=== PATIENT | male | born 1995 | race Caucasian/White ===

== ENCOUNTER 2016-12-15 17:01 | Emergency (ER) | payer BC, OTHER ==
[~2016-12-15] VITALS: Ht 167.6 cm; Wt 60.0 kg
[2016-12-15 17:13] VITALS: Ht 167.6 cm; Wt 60.0 kg
--- NOTE | 2016-12-15 17:55 | ERA ---
ER Documentation Chief Complaint Date/Time DATE: 12/15/16 TIME: 17:55 Chief Complaint nausea and vomiting with diarrhea this morning HPI The patient is a 21-year-old male, presenting with vomiting and diarrhea today after having pancake yesterday. He denies hematemesis, hematochezia, fever, chills, neck pain, chest pain, abdominal pain, dysuria. He does not smoke nor drink Past medical/surgical history: None ROS All systems reviewed and are negative except as per history of present illness. Medications Home Meds Active Scripts Ondansetron (Ondansetron Odt) 4 Mg Tab.rapdis, 4 MG PO Q6H Y for NAUSEA AND/OR VOMITING, #10 TAB Prov:LIAM HALEY MD 12/15/16 Loperamide Hcl* (Imodium*) 2 Mg Capsule, 2 MG PO .AFTER EA LOOSE BM Y for DIARRHEA, #20 TAB Prov:LIAM HALEY MD 12/15/16 Allergies Allergies: Coded Allergies: No Known Drug Allergy (Verified Allergy, Unknown, 12/15/16) Physical Exam Vitals Vital Signs Date Time Temp Pulse Resp B/P Pulse Ox O2 Delivery O2 Flow Rate FiO2 12/15/16 19:43 99.3 71 16 118/55 99 Room Air 12/15/16 17:13 98.6 80 18 137/74 96 Physical Exam Const: No acute distress. Head: Atraumatic. Eyes: Normal Conjunctiva. ENT: Normal External Ears, Nose and Mouth. Neck: Full range of motion. No meningismus. Resp: Clear to auscultation bilaterally. Cardio: Regular rate and rhythm, no murmurs. Abd: Soft, non distended, normal bowel sounds, non tender. Skin: No petechiae or rashes. Back: No midline or flank tenderness. Ext: No cyanosis, or edema. Neur: Awake and alert. No focal deficit Psych: Normal Mood and Affect. Result Diagram: 12/15/16182912/15/161829 Results 24 hrs Laboratory Tests Test 12/15/16 18:30 White Blood Count 13.810^3/ul Red Blood Count 5.2910^6/ul Hemoglobin 16.1g/dl Hematocrit 49.5% Mean Corpuscular Volume 93.6fl Mean Corpuscular Hemoglobin 30.4pg Mean Corpuscular Hemoglobin Concent 32.5g/dl Red Cell Distribution Width 12.9% Platelet Count 52217^3/UL Mean Platelet Volume 11.4fl Neutrophils % 91.9% Lymphocytes % 2.6% Monocytes % 4.8% Eosinophils % 0.2% Basophils % 0.1% Nucleated Red Blood Cells % 0.0/100WBC Neutrophils # 12.710^3/ul Lymphocytes # 0.410^3/ul Monocytes # 0.710^3/ul Eosinophils # 0.010^3/ul Basophils # 0.010^3/ul Nucleated Red Blood Cells # 0.010^3/ul Sodium Level 144mmol/L Potassium Level 4.5mmol/L Chloride Level 102mmol/L Carbon Dioxide Level 26mmol/L Anion Gap 21 Blood Urea Nitrogen 13mg/dl Creatinine 0.78mg/dl Glucose Level 104mg/dl Calcium Level 9.9mg/dl Total Bilirubin 0.9mg/dl Direct Bilirubin 0.00mg/dl Indirect Bilirubin 0.9mg/dl Aspartate Amino Transf (AST/SGOT) 24IU/L Alanine Aminotransferase (ALT/SGPT) 23IU/L Alkaline Phosphatase 79IU/L Total Protein 8.7g/dl Albumin 5.0g/dl Globulin 3.70g/dl Albumin/Globulin Ratio 1.35 Lipase 55U/L Current Medications Medications (Trade) Dose Ordered Sig/Amalia Route PRN Reason Start Time Stop Time Status Last Admin Dose Admin Sodium Chloride (NS) 1,000 ml @ 1,000 mls/hr Q1H ONCE IV 12/15/16 18:30 12/15/16 19:29 DC 12/15/16 18:39 Ondansetron HCl (Zofran Inj) 4 mg ONCE STAT IV 12/15/16 18:09 12/15/16 18:11 DC 12/15/16 18:45 Loperamide HCl (Imodium Cap) 4 mg ONCE ONCE PO 12/15/16 18:30 12/15/16 18:31 DC 12/15/16 19:04 Procedures/[facility] MEDICAL MAKING DECISION: The patient is a 21-year-old male, presenting with vomiting and diarrhea without any abdominal pain, most likely acute food poisoning. Multiple repeat abdominal exams were unremarkable. He was treated with 1 L normal saline for acute dehydration, Zofran 4 mg IV for vomiting and Imodium 4 mg p.o. for diarrhea with good response. I do not suspect appendicitis. The differential diagnoses considered include but are not limited to cholelithiasis, cholecystitis, cystitis, pancreatitis, hepatitis, gastritis, peptic ulcer disease, gastric ulcer, appendicitis, diverticulitis, cholangitis, choledocholithiasis, partial small bowel obstruction. Departure Diagnosis: Primary Impression: Vomiting and diarrhea Additional Impression: Dehydration Condition: Good Comments He was discharged with Imodium, Zofran ODT and advised to return in 8-12 hours for repeat evaluation, sooner if any concern LIAM HALEY MD Dec 15, 2016 17:55
[2016-12-15] MEDS ORDERED: ONDANSETRON 4 MG INJ IV STA (18:09)
[2016-12-15] MEDS ORDERED: LOPERAMIDE 2 MG CAP PO ONE (18:30)
[2016-12-15] MEDS ORDERED: SOD CHLORIDE 0.9% 1,000 ML IV ONE (18:30)
[2016-12-15 18:39] LABS: ADD SCAN DIFF NO
[2016-12-15 18:42] LABS: ABNORMAL IP MESSAGE 1; BASOPHILS % 0.1 % (0.0-2.0); EOSINOPHILS % 0.2 % (0.0-7.0); HEMATOCRIT 49.5 % (42.0-52.0); HEMOGLOBIN 16.1 g/dl (14.0-18.0); LYMPHOCYTES # 0.4 10^3/ul (0.8-2.9); LYMPHOCYTES % 2.6 % (15.0-51.0); MEAN CORPUSCULAR HEMOGLOBIN 30.4 pg (29.0-33.0); MEAN CORPUSCULAR HGB CONC 32.5 g/dl (32.0-37.0); MEAN CORPUSCULAR VOLUME 93.6 fl (82.0-101.0); MEAN PLATELET VOLUME 11.4 fl (7.4-10.4); MONOCYTE # 0.7 10^3/ul (0.3-0.9); MONOCYTES % 4.8 % (0.0-11.0); NEUTROPHIL # 12.7 10^3/ul (1.6-7.5); NEUTROPHILS % 91.9 % (39.0-77.0); PLATELET COUNT 187 10^3/UL (140-415); RED BLOOD COUNT 5.29 10^6/ul (4.70-6.10); RED CELL DISTRIBUTION WIDTH 12.9 % (11.5-14.5); WHITE BLOOD COUNT 13.8 10^3/ul (4.8-10.8)
[2016-12-15 19:04] LABS: POTASSIUM 4.5 mmol/L (3.5-5.1)
[2016-12-15 19:07] LABS: ALBUMIN/GLOBULIN RATIO 1.35; BILIRUBIN,INDIRECT 0.9 mg/dl (0-1.1); BILIRUBIN,TOTAL 0.9 mg/dl (0.2-1.3); CALCIUM 9.9 mg/dl (8.4-10.2); CREATININE 0.78 mg/dl (0.61-1.24); TOTAL PROTEIN 8.7 g/dl (6.1-8.1)
[2016-12-15] MEDS ORDERED: LOPE2CAP PO (19:35)
[2016-12-15] MEDS ORDERED: ONDA4TAB14 PO (19:35)
[2016-12-15 19:43] VITALS: BP 118/55; PULSE 71; RESP 16; TEMP 99.3
== END 2016-12-15 20:13 | disposition home or self-care (01) ==
LOC: FTE 17:01
DX: R11.10 Vomiting, unspecified (principal); R19.7 Diarrhea, unspecified; E86.0 Dehydration
CPT/HCPCS: 36415; 80053; 83690; 85025; 96374; J2405; J7030; Z7502; Z7610